=== PATIENT | female | born 1990 | race Caucasian/White ===

== ENCOUNTER 2018-10-05 09:32 | Outpatient (CLI) | payer OTHER ==
--- NOTE | 2018-10-05 13:32 | XRAY Report ---
Reason: ANKLE PAIN,LEFT Procedure Date: 10/05/2018 Accession Number: [id number] / [id number] Procedure: WCP - Ankle 2 View LT CPT Code: FULL RESULT: EXAM: LEFT ANKLE RADIOGRAPHY EXAM DATE: 10/05/2018 09:27 AM. CLINICAL HISTORY: Ankle pain, left. COMPARISON: None. TECHNIQUE: 2 views. FINDINGS: Bones: Normal. No fractures or bone lesions. Joints: Normal. No effusion. No subluxations. The ankle mortise is normally aligned. Soft Tissues: Normal. No soft tissue swelling. IMPRESSION: Normal ankle radiography. [facility]
== END 2018-10-05 09:33 | disposition home or self-care (01) ==
LOC: DI.WCP 09:32
PROVIDERS: ATTEND Physician Assistant Medical
DX: M25.572 Pain in left ankle and joints of left foot (principal)